=== PATIENT | male | born 1995 | race Caucasian/White ===

== ENCOUNTER 2017-12-31 06:17 | Emergency (ER) | payer OTHER ==
[2017-12-31 06:26] VITALS: BP 119/75
--- NOTE | 2017-12-31 07:12 | EDPHY ---
H & P Stated Complaint: lac to L 2nd finger Time Seen by Provider: 12/31/17 07:05 HPI/ROS: CHIEF COMPLAINT: Hand laceration HISTORY OF PRESENT ILLNESS: Patient is a 22-year-old man who was using a hand box coverer and sliced his left hand about half an hour ago. He has a 2 cm laceration to the medial aspect of his left index finger just proximal to the MCP. He denies other injuries. Normal range of motion and sensation. Bleeding controlled with butterfly bandages. REVIEW OF SYSTEMS: Constitutional: denies: chills, fever, recent illness, recent injury EENTM: denies: blurred vision, double vision, nose congestion Respiratory: denies: cough, shortness of breath Cardiac: denies: chest pain, irregular heart rate, lightheadedness, palpitations Gastrointestinal/Abdominal: denies: abdominal pain, diarrhea, nausea, vomiting, blood streaked stools Genitourinary: denies: dysuria, frequency, hematuria, pain Musculoskeletal: denies: joint pain, muscle pain Skin: See HPI Neurological: denies: headache, numbness, paresthesia, tingling, dizziness, weakness Hematologic/Lymphatic: denies: blood clots, easy bleeding, easy bruising Immunologic/allergic: denies: HIV/AIDS, transplant EXAM: GENERAL: Well-appearing, well-nourished and in no acute distress. HEAD: Atraumatic, normocephalic. EYES: Pupils equal round and reactive to light, extraocular movements intact, sclera anicteric, conjunctiva are normal. ENT: TMs normal, nares patent, oropharynx clear without exudates. Moist mucous membranes. NECK: Normal range of motion, supple without lymphadenopathy or JVD. LUNGS: Breath sounds clear to auscultation bilaterally and equal. No wheezes rales or rhonchi. HEART: Regular rate and rhythm without murmurs, rubs or gallops. ABDOMEN: Soft, nontender, normoactive bowel sounds. No guarding, no rebound. No masses appreciated. BACK: No CVA tenderness, no spinal tenderness, step-offs or deformities EXTREMITIES: Normal range of motion, no pitting or edema. No clubbing or cyanosis. NEUROLOGICAL: Cranial nerves II through XII grossly intact. Normal speech, normal gait. 5/5 strength, normal movement in all extremities, normal sensation PSYCH: Normal mood, normal affect. SKIN: 2 cm laceration left index finger Source: Patient Exam Limitations: No limitations - Personal History Current Tetanus Diphtheria and Acellular Pertussis (TDAP): Unsure - Medical/Surgical History Hx Asthma: No Hx Chronic Respiratory Disease: No Hx Diabetes: No Hx Cardiac Disease: No Hx Renal Disease: No Hx Cirrhosis: No Hx Alcoholism: No Hx HIV/AIDS: No Hx Splenectomy or Spleen Trauma: No Other PMH: adenoidectomy - Family History Significant Family History: No pertinent family hx - Social History Smoking Status: Current every day smoker Alcohol Use: Sober Drug Use: None Constitutional: Initial Vital Signs Temperature (C) 37 C 12/31/17 06:22 Heart Rate 58 L 12/31/17 06:22 Respiratory Rate 16 12/31/17 06:22 Blood Pressure 119/75 12/31/17 06:22 O2 Sat (%) 99 12/31/17 06:22 O2 Delivery Mode Room Air Allergies/Adverse Reactions: Penicillins Allergy (Verified 12/31/17 06:27) Home Medications: Medication Instructions Recorded NK [No Known Home Meds] 12/31/17 Medical Decision Making Procedures: Procedure: Laceration repair. Verbal consent was obtained from the patient. The 2 cm left hand laceration was anesthetized with 1% lidocaine with epi and bicarbonate locally infiltrated. The wound was irrigated copiously according to protocol, draped and explored to its base. It was approximately 1/2 cm deep. There were no deep structures involved. No tendon, nerve, or vascular injury was identified when explored through full range of motion. No foreign body was identified. The wound was repaired with 6.0 Prolene, 3 sutures, interrupted. The wound repair was simple without wound margin revisement or multiple flap alignment. The procedure was performed by myself. A dressing was then placed with sterile gauze and bacitracin. ED Course/Re-evaluation: Patient tolerated wound repair well. We discussed suture care and removal in 10 days. We discussed work restrictions. Differential Diagnosis: Partial list of the Differential diagnosis considered include but were not limited to; laceration, foreign body and although unlikely based on the history and physical exam, I also considered tendon injury, vascular injury, nerve injury, fracture. - Data Points Medications Given: Discontinued Medications Diphtheria/Tetanus/Acell Pertussis (Boostrix) 0.5 ml IM .ONCE ONE Stop: 12/31/17 07:27 Last Admin: 12/31/17 07:38 Dose: 0.5 ml Departure - Departure Disposition: Home, Routine, Self-Care Clinical Impression: Laceration Condition: Fair Instructions: Care For Your Stitches (ED), Laceration (ED) Additional Instructions: Return to have your stitches removed in 10 days Referrals: NONE *PRIMARY CARE P,. [Primary Care Provider] - As per Instructions [facility],. [Clinic] - As per Instructions
[2017-12-31] MEDS ORDERED: TDAP ADULT 0.5 ML INJ (BOOSTRIX) IM ONE (07:26)
== END 2017-12-31 07:30 | disposition home or self-care (01) ==
PROC: 0HQGXZZ Repair Left Hand Skin, External Approach (ICD-10-PCS; principal; 2017-12-31)
DX: S61.211A Laceration without foreign body of left index finger without damage to nail, initial encounter (principal); F17.200 Nicotine dependence, unspecified, uncomplicated; Z23 Encounter for immunization; W26.8XXA Contact with other sharp object(s), not elsewhere classified, initial encounter; Y99.8 Other external cause status; Y93.89 Activity, other specified

== ENCOUNTER 2018-11-26 04:41 | Emergency (ER) | payer OTHER ==
[2018-11-26 04:48] VITALS: BP 132/87
--- NOTE | 2018-11-26 05:09 | EDPHY ---
H & P Stated Complaint: LAC TO R KNEE.. WORK COMP Time Seen by Provider: 11/26/18 04:57 HPI/ROS: HPI: The patient presents with right knee laceration which occurred just prior to arrival while at work. He was using a box turner to open a package when he cut through his right thigh. Has a gaping wound. The bleeding is stopped. His tetanus vaccine is up-to-date. He has no difficulty with ambulation. REVIEW OF SYSTEMS 10 systems were reviewed and negative with the exception of the elements mentioned in the history of present illness. PMHx: Healthy TRAUMA PHYSICAL General Appearance: Alert, no distress Respiratory: Breathing comfortably Skin: Lateral distal right thigh with 2 cm gaping oblique laceration with no active bleeding Extremities: Non-tender, full range of motion Neurological: A&Ox3, GCS=15,normal motor function with 5/5 strength in all 4 extremities, normal sensory exam Source: Patient Exam Limitations: No limitations - Personal History Current Tetanus/Diphtheria Vaccine: Yes Current Tetanus Diphtheria and Acellular Pertussis (TDAP): Yes Tetanus Vaccine Date: 2017 - Medical/Surgical History Hx Asthma: No Hx Chronic Respiratory Disease: No Hx Diabetes: No Hx Cardiac Disease: No Hx Renal Disease: No Hx Cirrhosis: No Hx Alcoholism: No Hx HIV/AIDS: No Hx Splenectomy or Spleen Trauma: No Other PMH: adenoidectomy - Social History Smoking Status: Current every day smoker Constitutional: Initial Vital Signs Temperature (C) 36.8 C 11/26/18 04:45 Heart Rate 57 L 11/26/18 04:45 Respiratory Rate 16 11/26/18 04:45 Blood Pressure 132/87 H 11/26/18 04:45 O2 Sat (%) 96 11/26/18 04:45 O2 Delivery Mode Room Air Allergies/Adverse Reactions: Penicillins Allergy (Verified 11/26/18 04:47) Home Medications: Medication Instructions Recorded NK [No Known Home Meds] 12/31/17 Medical Decision Making Procedures: LACERATION REPAIR Procedure: Laceration repair. Verbal consent was obtained from the patient. The linear 2 cm laceration on the right distal thigh was not anesthetized. The wound was scrubbed, draped and explored to its base with a gloved finger. There were no deep structures involved. No tendon injury was identified. . The wound was repaired with Dermabond and Steri-Strips. The wound repair was simple. The procedure was performed by myself. Differential Diagnosis: 23-year-old male presents with right distal thigh laceration sustained just prior to arrival while at work. Wound is gaping the relatively superficial with no active bleeding. It does not violate the joint space. Tetanus vaccine is up-to-date. Wound will be repaired in the emergency department. Departure - Departure Disposition: Home, Routine, Self-Care Clinical Impression: Leg laceration Qualifiers: Encounter type: initial encounter Laterality: right Qualified Code(s): S81.811A - Laceration without foreign body, right lower leg, initial encounter Condition: Good Instructions: Skin Adhesive Care (ED) Additional Instructions: Please return to the emergency department for any redness, swelling, warmth, tenderness. Referrals: Leidy Rivas MD [Medical Doctor] - As per Instructions
[2018-11-26] MEDS ORDERED: SKIN ADHESIVE (DERMABOND) 1 EACH TP ONE (05:10)
== END 2018-11-26 05:40 | disposition home or self-care (01) ==
PROC: 0HQHXZZ Repair Right Upper Leg Skin, External Approach (ICD-10-PCS; principal; 2018-11-26)
DX: S81.811A Laceration without foreign body, right lower leg, initial encounter (principal); W26.8XXA Contact with other sharp object(s), not elsewhere classified, initial encounter; Y99.0 Civilian activity done for income or pay